=== PATIENT | female | born 1960 | race Caucasian/White ===

== ENCOUNTER 2018-07-06 01:55 | Emergency (ER) | payer OTHER ==
[~2018-07-06] VITALS: Ht 162.6 cm; Wt 48.1 kg
[2018-07-06 02:05] VITALS: BP 165/90
--- NOTE | 2018-07-06 02:05 | NUR ---
Pt ambulated to bed 4.
--- NOTE | 2018-07-06 02:10 | NUR ---
PT PRESENTS TO ED WITH C/O HIGH BLOOD SUGAR X 3 DAYS. PT A/O X 4. ABLE TO ANSWER QUESTIONS APPROPRIATELY. PT DENIES SOB AND CHEST PAIN AT THIS TIME. PT ABLE TO AMBULATE ON HER OWN. PT C/O DRY MOUTH . PT STATES HER PCP IS WORKING ON CHANGING HER INSULIN AND SHE HAS BEEN OUT OF IT FOR 3 DAYS NOW.
--- NOTE | 2018-07-06 02:17 | NUR ---
Patient being evaluated by Dr. Melgoza at bedside.
[2018-07-06] MEDS ORDERED: INSULIN REGULAR, HUMAN 100 UNIT/ML VIAL SUBQ ONE ×3 (02:20→04:25)
[2018-07-06] MEDS ORDERED: NACL 0.9% 1,000 ML IV ONE (02:20)
[2018-07-06 02:31] LABS: BASOPHILS % (AUTO) 0.3 % (0.0-2.0); EOSINOPHILS # (AUTO) 0.1 K/uL (0-0.4); EOSINOPHILS % (AUTO) 1.3 % (0.0-4.0); HEMATOCRIT 38.2 % (36-48); HEMOGLOBIN 12.8 g/dL (12.0-16.0); LYMPHOCYTES # (AUTO) 2.9 K/uL (2.5-16.5); LYMPHOCYTES % (AUTO) 36.5 % (20.5-51.1); MEAN CORPUSCULAR HEMOGLOBIN 31 pg (27-31); MEAN CORPUSCULAR HGB CONC 34 g/dL (33-37); MEAN CORPUSCULAR VOLUME 92.5 fL (80-94); MONOCYTES # (AUTO) 0.6 K/uL (0.8-1.0); MONOCYTES % (AUTO) 6.9 % (1.7-9.3); NEUTROPHILS # (AUTO) 4.4 K/uL (1.8-7.7); PLATELET COUNT (AUTO) 177 K/uL (140-450); RED BLOOD CELL COUNT(AUTO) 4.13 MIL/uL (4.20-5.40); RED CELL DISTRIBUTION WIDTH 13.5 % (11.6-13.7); WHITE BLOOD COUNT (AUTO) 8.1 K/uL (4.8-10.8)
[2018-07-06] MEDS ORDERED: HUM SUBQ (02:31)
[2018-07-06] MEDS ORDERED: CARV3.12 PO (02:31)
[2018-07-06] MEDS ORDERED: AZAT50TA PO (02:31)
[2018-07-06] MEDS ORDERED: INSU100S22 SC (02:31)
[2018-07-06 02:32] LABS: APPEARANCE,URINE SL CLOUDY (CLEAR); BILIRUBIN,URINE NEGATIVE (NEGATIVE); BLOOD, URINE NEGATIVE (NEGATIVE); COLOR,URINE YELLOW (YELLOW); LEUKOCYTE ESTERASE ,URINE TRACE (NEGATIVE); NITRITE, URINE POSITIVE (NEGATIVE); UGLUCOSE 3+ (NEGATIVE)
[2018-07-06] MEDS ORDERED: NITROFURANTOIN 100 MG CAP PO ONE (02:40)
--- NOTE | 2018-07-06 02:54 | NUR ---
Warm blanket provided to patient. Lights dimmed in room. Call light left within reach. IV fluids infusing, pt tolerating well.
[2018-07-06 02:55] LABS: ALBUMIN 3.5 g/dL (3.4-5.0); ANION GAP 10.1 (8-16); CARBON DIOXIDE 30.9 mmol/L (21-32); CREATININE 1.1 mg/dL (0.6-1.3); TOTAL BILIRUBIN 0.6 mg/dL (0.0-1.0)
[2018-07-06 02:55] LABS: RBC,URINE NONE SEEN /HPF (0-5); WBC,URINE 16-25 (MOD) /HPF (0-5)
--- NOTE | 2018-07-06 03:26 | NUR ---
PT RESTING COMFORTABLY AT THIS TIME. 4 UNITS INSULIN GIVEN, PT TOLERATED WELL.
[2018-07-06 04:44] VITALS: BP 155/83
== END 2018-07-06 04:44 | disposition home or self-care (01) ==
LOC: MED 01:55
DX: E11.65 Type 2 diabetes mellitus with hyperglycemia (principal); N39.0 Urinary tract infection, site not specified; I10 Essential (primary) hypertension; Z79.4 Long term (current) use of insulin; Z79.899 Other long term (current) drug therapy
CPT/HCPCS: 36415; 80053; 81001; 82948; 85025; 87086; 96360; 96372; 99283; J1815; J7030; 87186

== ENCOUNTER 2018-12-11 01:58 | Emergency (ER) | payer OTHER ==
[~2018-12-11] VITALS: Ht 162.6 cm; Wt 49.9 kg
[~2018-12-11 01:58] MED LIST: AZAT50TA PO; CARV3.12 PO; HUM SUBQ; INSU100S22 SC
[2018-12-11 02:00] VITALS: BP 170/83
--- NOTE | 2018-12-11 02:00 | NUR ---
TO BED # 02 AMBULATORY
--- NOTE | 2018-12-11 02:00 | NUR ---
VISION ACUITY BOTH EYE 20/25 , RT EYE 20/25 LEFT EYE CANT READ AND SEE BLURRY
--- NOTE | 2018-12-11 02:15 | NUR ---
C/O 4/10 LEFT EYE PRESSURE ACCOMPANIED BY BLURRED VISION X 2 DAYS. PT STATES "I THINK I POPPED A BLOOD VESSEL IN MY EYE BECAUSE I CAN ONLY SEE SMALL RED LINES." NO REDNESS OR SWELLING NOTED.
--- NOTE | 2018-12-11 03:15 | NUR ---
EXPLAINED TO PT THAT CT IS DOWN FOR REPAIRS AND WE CANNOT PERFORM CT AT THIS TIME. DR. EASON RECOMMENDS TO BE TRANSFERRED FOR CT. PT STATES SHE WISHES TO LEAVE. DR. EASON MADE AWARE.
--- NOTE | 2018-12-11 03:30 | NUR ---
Patient does not wish to proceed with medical care recommended by Dr. Melgoza. Patient given information related to possible complications, up to and including , which could occur as a result of leaving hospital at this time. Patient verbalizes understanding of risks involved leaving against medical advice. Patient has signed AMA form.
== END 2018-12-11 03:30 | disposition left against medical advice (07) ==
LOC: MED 01:58
DX: H54.7 Unspecified visual loss (principal); I10 Essential (primary) hypertension; E11.9 Type 2 diabetes mellitus without complications; Z79.4 Long term (current) use of insulin; Z79.899 Other long term (current) drug therapy
CPT/HCPCS: 99282

== ENCOUNTER 2019-02-14 00:50 | Emergency (ER) | payer OTHER ==
[~2019-02-14] VITALS: Ht 162.6 cm; Wt 51.3 kg
--- NOTE | 2019-02-14 00:50 | NUR ---
PT BIBA BLS. TAKEN TO BED 7. [place] [employer] AT BEDSIDE
[2019-02-14 00:54] VITALS: BP 172/92
--- NOTE | 2019-02-14 00:58 | NUR ---
BIBA WITH LAC TO BACK OF HEAD S/P FALL. PT STATES 10/10 PAIN TO BACK OF HEAD THAT DOES NOT RADIATE. PT WAS HOLDING DOOR TO KEEP SON OUT OF HOUSE AND HE OPENED DOOR AND PT FELL BACK AND HIT HEAD ON FLOOR. DENIES LOC. BLEEDING CONTROLLED AT THIS TIME. PT DOES NOT APPEAR TO BE IN ANY DISTRESS AT THIS TIME. VSS. [place] [employer] AT PT BEDSIDE. MEDHX: DM, HTN, LIVER DISEASE ALLERGIES: DENIES
[2019-02-14] MEDS ORDERED: BACITRACIN OINT 500 UNITS/GM PKT TP ONE ×2 (01:19→01:20)
[2019-02-14] MEDS ORDERED: KETOROLAC 60 MG/2 ML VIAL IM ONE (01:20)
--- NOTE | 2019-02-14 01:25 | NUR ---
PT TO CT VIA WHEELCHAIR
--- NOTE | 2019-02-14 01:48 | NUR ---
PT RETURNED FROM CT VIA WHEELCHAIR
[2019-02-14 02:05] VITALS: BP 172/92
--- NOTE | 2019-02-14 02:06 | NUR ---
Patient discharged with v/s stable. Written and verbal after care instructions given and explained. Patient alert, oriented and verbalized understanding of instructions. Ambulatory with to home. All questions addressed prior to discharge. ID band removed. Patient advised to follow up with PMD. Rx of NAPROSYN given. Patient educated on indication of medication including possible reaction and side effects. Opportunity to ask questions provided and answered. DISCHARGED BY DR HERNANDEZ
== END 2019-02-14 02:06 | disposition home or self-care (01) ==
LOC: MED 00:50
DX: S00.03XA Contusion of scalp, initial encounter (principal); J45.909 Unspecified asthma, uncomplicated; E11.9 Type 2 diabetes mellitus without complications; I10 Essential (primary) hypertension; Z79.4 Long term (current) use of insulin; Z79.899 Other long term (current) drug therapy; W19.XXXA Unspecified fall, initial encounter; Y93.89 Activity, other specified; Y92.89 Other specified places as the place of occurrence of the external cause; Y99.8 Other external cause status
CPT/HCPCS: 70450; 96372; 99284; J1885